=== PATIENT | female | born 1970 | race Two or more races ===

== ENCOUNTER 2023-07-04 13:28 | Emergency (ER) | payer OTHER ==
[~2023-07-04] VITALS: Ht 162.6 cm; Wt 70.5 kg
[2023-07-04 14:20] VITALS: PULSE 91; RESP 17; TEMP 98.1; O2SAT 96
[2023-07-04] MEDS: ONDANSETRON HCL 4 MG/2 ML VIAL IV ONE (15:51)
[2023-07-04] MEDS: MORPHINE SULFATE 4 MG/ML SYR/VIAL IV ONE (16:06)
[2023-07-04] MEDS ORDERED: CYCL-837 PO (16:27)
[2023-07-04] MEDS ORDERED: NAPR-1334 PO (16:27)
[2023-07-04 16:40] VITALS: O2SAT 96
[2023-07-04 16:44] VITALS: BP 153/91; RESP 14
[2023-07-04 16:54] VITALS: PULSE 80
== END 2023-07-04 16:22 | disposition home or self-care (01) ==
LOC: EDBD 13:28 → ER 13:28
DX: S40.012A Contusion of left shoulder, initial encounter (principal); S50.02XA Contusion of left elbow, initial encounter; S00.83XA Contusion of other part of head, initial encounter; R07.89 Other chest pain; M54.2 Cervicalgia; Z98.890 Other specified postprocedural states; Z79.899 Other long term (current) drug therapy; V49.69XA Unspecified car occupant injured in collision with other motor vehicles in traffic accident, initial encounter; Y93.89 Activity, other specified; Y92.89 Other specified places as the place of occurrence of the external cause; Y99.8 Other external cause status
CPT/HCPCS: 36415; 70450; 71045; 72125; 73030; 73060; 73070; 84484; 93005; 96374; 96375; 99285; J2270; J2405

== ENCOUNTER 2024-03-23 09:12 | Emergency (ER) | payer OTHER ==
[~2024-03-23] VITALS: Ht 165.1 cm; Wt 72.4 kg
[~2024-03-23 09:12] MED LIST: CYCL-837 PO; NAPR-1335 PO
[2024-03-23 10:35] VITALS: BP 175/80; PULSE 90; RESP 20; TEMP 98; O2SAT 97
[2024-03-23] MEDS ORDERED: MELO7.5T7 PO (10:59)
[2024-03-23] MEDS ORDERED: METH4PAK PO (10:59)
== END 2024-03-23 11:22 | disposition home or self-care (01) ==
LOC: ER 09:12
DX: M54.9 Dorsalgia, unspecified (principal); M25.561 Pain in right knee; M25.562 Pain in left knee; Z79.899 Other long term (current) drug therapy; W01.0XXA Fall on same level from slipping, tripping and stumbling without subsequent striking against object, initial encounter; Y93.89 Activity, other specified; Y92.89 Other specified places as the place of occurrence of the external cause; Y99.8 Other external cause status
CPT/HCPCS: 72100